=== PATIENT | female | born 1995 | race African-American/Black ===

== ENCOUNTER 2021-11-23 16:27 | Emergency (ER) | payer OTHER ==
[~2021-11-23] VITALS: Ht 157.5 cm; Wt 86.6 kg
[2021-11-23 16:36] VITALS: BP 142/89
== END 2021-11-23 17:48 | disposition home or self-care (01) ==
LOC: ER 16:27
DX: U07.1 COVID-19 (principal); I10 Essential (primary) hypertension; J45.909 Unspecified asthma, uncomplicated; E11.9 Type 2 diabetes mellitus without complications; Z88.0 Allergy status to penicillin; Z88.1 Allergy status to other antibiotic agents